=== PATIENT | male | born 1960 | race Caucasian/White ===

== ENCOUNTER → 2017-02-11 | Day surgery (SDC) | payer BC, MEDICAID ==
[~2017-02-11] MED LIST: Lactated Ringers 1,000 ML IV SCH; Midazolam 1 MG/ML 2 ML SDV ONE; Propofol 200 MG/20 ML SDV ONE; fentaNYL 100 MCG/2 ML SDV ONE
--- NOTE | 2017-02-11 09:08 | PCM.OPNOTE ---
- General Post-Op/Procedure Note Date of Surgery/Procedure: 02/11/17 Pre Op Diagnosis: Screening colonoscopy Post-Op Diagnosis: Small polyp at 20 cm and small polyp at the rectum Primary Surgeon: Eddie Romo Sr Condition: Good Free Text/Narrative:: Emiliano is a 56-year-old male comes in for screening colonoscopy. The risks and benefits were were explained to the patient was taken to the OR. This is done as an outpatient. Anesthesia was given by nurse senior internet sales consultant during the procedure we used 100 mcg of fentanyl and 2 mg of Versed and 200 mg of propofol. The Olympus 180L scope was used. With the gloved finger the prostate was evaluated and the prostate was a grade 3 /6 symmetrical and soft. We then placed the tube in the rectum and advanced under direct vision. We did get to the cecum using external pressure. Upon slow retraction of the tube noted no lesions or ulcerations to we got to 20 cm noted a small polyp that appeared to be more hyperplastic but this was biopsied. A similar lesion which I feel is an 80 nothing pressure at the rectum this was biopsied as well. The tube was removed the patient tolerated the procedure well. Preop: Screening colonoscopy. Postop: Small polyp 3 mm at 20 cm and a 2 mm polyp at the rectum. The pathology report is pending. I will speak with him once the pathology report is complete.
[2017-02-11 10:06] VITALS: BP 119/73
== END ==
LOC: JP.SDS 07:08
PROVIDERS: ATTEND Internal Medicine
DX: Z12.11 Encounter for screening for malignant neoplasm of colon (principal); K63.5 Polyp of colon; K62.1 Rectal polyp; Z88.1 Allergy status to other antibiotic agents; Z88.8 Allergy status to other drugs, medicaments and biological substances; I10 Essential (primary) hypertension; E78.5 Hyperlipidemia, unspecified
CPT/HCPCS: 45380; 88305; J2250; J2704; J3010; J7120